=== PATIENT | male | born 2005 ===

== ENCOUNTER → 2024-10-13 17:16 | Outpatient (REF) | payer BC, SELFPAY ==
[2024-10-13 17:48] LABS: % Basophils 0.6 % (0-2); % Eosinophils 7.2 % (0-6); % Immature Granulocytes 0.4 % (0-0.5); % Lymphocytes 28.5 % (20.5-51.1); % Monocytes 7.8 % (1.7-9.3); % Neutrophils 55.5 % (42.2-75.2); Absolute Eosinophils 0.4 10^3/uL (0-0.7); Absolute Lymphocytes 1.5 10^3/uL (1.2-3.4); Absolute Monocytes 0.4 10^3/uL (0.1-0.6); Absolute Neutrophils 2.9 10^3/uL (1.4-6.5); Hematocrit 49.1 % (39.0-52.0); Hemoglobin 16.4 g/dL (13.0-18.0); Mean Corp Hgb Conc. 33.4 g/dL (33.0-37.0); Mean Corpuscular Hgb 29.6 pg (27.0-31.0); Mean Corpuscular Volume 88.6 fL (80.0-94.0); Nucleated Red Blood Cells % 0 % (-); Platelet Count 245 10^3/uL (130-400); Red Blood Cell Count 5.54 10^6/uL (4.70-6.10); Red Cell Dist. Width 12.6 % (11.5-14.5); White Blood Cell Count 5.2 10^3/uL (4.8-10.8)
[2024-10-13 18:00] LABS: ALT (SGPT) 22 U/L (0-50); AST (SGOT) 25 U/L (17-59); Albumin 5.2 g/dl (3.5-5.0); Alkaline Phosphatase 85 U/L (38-126); Blood Urea Nitrogen 20 mg/dl (9-20); Calcium 9.9 mg/dl (8.4-10.2); Carbon Dioxide 26 mmol/L (22-30); Chloride 105 mmol/L (98-107); Glucose 99 mg/dl (70-99); HDL Cholesterol 58 mg/dl; LDL Cholesterol, Calculated 75 mg/dl; Potassium 5.4 mmol/L (3.5-5.1); Sodium 141 mmol/L (135-145); Total Cholesterol 150 mg/dl (50-199); Total Protein 8.4 g/dl (6.3-8.2); Triglyceride 85 mg/dl (10-149); Very Low Density Lipoprotein 17 mg/dl (0-30); eGFR > 60.00
[2024-10-13 18:16] LABS: Vitamin D, 25-OH*** 66.6 ng/mL (30-80)
[2024-10-13 18:29] LABS: TSH 1.88 uIU/ml (0.47-4.68)
[2024-10-14 08:08] LABS: Glycohemoglobin (HgbA1c) 5.1 % (4.0-5.6)
== END ==
LOC: CLAB 17:16
PROVIDERS: ATTENDING PHYSICIAN Physician Assistant Medical
DX: Z00.00 Encounter for general adult medical examination without abnormal findings (principal)
CPT/HCPCS: 36415; 80053; 80061; 82306; 83036; 84439; 84443; 85025